=== PATIENT | female | born 1960 | race African-American/Black ===

== ENCOUNTER 2023-07-20 07:17 | Emergency (ER) | payer OTHER ==
[~2023-07-20] VITALS: Ht 170.2 cm; Wt 94.8 kg
[2023-07-20] MEDS ORDERED: IBUP-1955 PO (08:14)
[2023-07-20] MEDS ORDERED: LIDO30AD10 TP (08:14)
[2023-07-20 08:30] VITALS: BP 137/99; TEMP 97.9; O2SAT 99
== END 2023-07-20 08:31 | disposition home or self-care (01) ==
LOC: ER 07:20
DX: S16.1XXA Strain of muscle, fascia and tendon at neck level, initial encounter (principal); R51.9 Headache, unspecified; R03.0 Elevated blood-pressure reading, without diagnosis of hypertension; F17.210 Nicotine dependence, cigarettes, uncomplicated; Z85.3 Personal history of malignant neoplasm of breast; Z88.5 Allergy status to narcotic agent; Z88.2 Allergy status to sulfonamides; Z88.8 Allergy status to other drugs, medicaments and biological substances; V49.9XXA Car occupant (driver) (passenger) injured in unspecified traffic accident, initial encounter; Y93.89 Activity, other specified; Y92.89 Other specified places as the place of occurrence of the external cause; Y99.8 Other external cause status

== ENCOUNTER 2024-08-19 08:19 | Emergency (ER) | payer OTHER ==
[~2024-08-19] VITALS: Ht 170.2 cm; Wt 90.7 kg
[~2024-08-19 08:19] MED LIST: IBUP-1955 PO; LIDO30AD10 TP
[2024-08-19 08:46] LABS: BASOPHILS # (AUTO) 0.1 K/uL (0.0-0.2); EOSINOPHILS # (AUTO) 0.2 K/uL (0.0-0.7); EOSINOPHILS % (AUTO) 2.7 % (0.0-6.0); HEMATOCRIT 41 % (33-45); HEMOGLOBIN 13.3 g/dL (11.5-14.8); LYMPHOCYTES # (AUTO) 2.2 K/uL (0.8-4.8); LYMPHOCYTES % (AUTO) 31.7 % (20.0-44.0); MEAN CORPUSCULAR HEMOGLOBIN 29 PG (26.0-33.0); MEAN CORPUSCULAR HGB CONC 33 g/dl (31.0-36.0); MEAN CORPUSCULAR VOLUME 88 fL (82-100); MONOCYTES # (AUTO) 0.4 K/uL (0.1-1.30); MONOCYTES % (AUTO) 5.7 % (2.0-12.0); NEUTROPHILS # (AUTO) 4.1 K/uL (1.8-8.9); NEUTROPHILS % (AUTO) 58.9 % (43.0-81.0); PLATELET COUNT (AUTO) 282 K/uL (150-450); RED CELL DISTRIBUTION WIDTH 13.5 % (11.5-15.0)
[2024-08-19 08:54] LABS: CALCIUM, SERUM 9.3 mg/dL (8.5-10.1); CARBON DIOXIDE 30 mmol/L (21-32); CHLORIDE 106 mmol/L (98-107); CREATININE 1.1 mg/dL (0.6-1.3); GLUCOSE 95 mg/dL (74-106); POTASSIUM 3.6 mmol/L (3.5-5.1); SODIUM SERUM 143 mmol/L (136-145); UREA NITROGEN, BLOOD 20 mg/dL (7-18)
[2024-08-19] MEDS ORDERED: KETOROLAC TROMETHAMINE 15 MG/ML VIAL ONE (09:31)
[2024-08-19] MEDS ORDERED: LIDOCAINE 5% (PATCH) 1 EA PATCH TP ONE (09:31)
[2024-08-19] MEDS: KETOROLAC TROMETHAMINE 15 MG/ML VIAL IV ONE (09:32)
[2024-08-19] MEDS: LIDOCAINE 5% (PATCH) 1 EA PATCH TP SCH (09:34)
[2024-08-19] MEDS: LIDOCAINE 5% (PATCH) 1 EA PATCH TP ONE (10:00)
[2024-08-19] MEDS ORDERED: METH4TAB17 PO (10:08)
[2024-08-19 10:11] VITALS: BP 146/82; TEMP 98.3; O2SAT 98
== END 2024-08-19 10:57 | disposition home or self-care (01) ==
LOC: ER 08:21
DX: M54.12 Radiculopathy, cervical region (principal); M79.602 Pain in left arm; R07.89 Other chest pain; I10 Essential (primary) hypertension; E78.5 Hyperlipidemia, unspecified; F17.210 Nicotine dependence, cigarettes, uncomplicated; Z71.6 Tobacco abuse counseling; Z85.3 Personal history of malignant neoplasm of breast; Z88.1 Allergy status to other antibiotic agents; Z88.2 Allergy status to sulfonamides; Z88.5 Allergy status to narcotic agent; Z90.11 Acquired absence of right breast and nipple; Z79.899 Other long term (current) drug therapy
CPT/HCPCS: 99285; 96374; 93971; 71045; 93005 ×2; 85025; 80048; 36415; 84484; J1885